=== PATIENT | female | born 1995 | race Caucasian/White ===

== ENCOUNTER 2023-03-25 05:18 | Emergency (ER) | payer BC, OTHER ==
[2023-03-25] MEDS ORDERED: TRANEXAMIC 1,000 MG/100ML-NACL 1,000 MG in SALINE 1 100ML.BAG IVPB ONE (05:47)
[2023-03-25 05:51] VITALS: TEMP 98.2
[2023-03-25 06:01] LABS: Basophils # (A) 0.1 k/uL (0-0.2); Basophils % (A) 1 %; Eosinophils # (A) 0.2 k/uL (0-0.7); Eosinophils % (A) 2 %; HCT 40.5 % (34.0-46.0); HGB 14.2 gm/dL (11.4-16.0); Lymphocytes # (A) 2.3 k/uL (1.0-4.8); Lymphocytes % (A) 27 %; MCH 29.9 pg (25.0-35.0); MCV 85.4 fL (80.0-100.0); Mean Platelet Volume 7.7; Monocytes # (A) 0.7 k/uL (0-1.0); Monocytes % (A) 8 %; Neutrophils # (A) 5.3 k/uL (1.3-7.7); Neutrophils % (A) 61 %; Platelet Count 264 k/uL (150-450); RBC 4.75 m/uL (3.80-5.40); RDW 11.9 % (11.5-15.5); WBC 8.6 k/uL (3.8-10.6)
[2023-03-25 06:18] LABS: African American GFR (CKD) >90 (>60 ml/min/1.73 sqM); Anion Gap 11 mmol/L; Blood Urea Nitrogen 23 mg/dL (7-17); Calcium 9.8 mg/dL (8.4-10.2); Carbon Dioxide 22 mmol/L (22-30); Chloride 107 mmol/L (98-107); Glucose 93 mg/dL (74-99); Non-African American GFR(CKD) >90 (>60 ml/min/1.73 sqM); Sodium 140 mmol/L (137-145)
--- NOTE | 2023-03-25 06:23 | ED ---
Female Urogenital HPI - General Chief complaint: Vaginal Bleeding Stated complaint: Vaginal Bleeding Time Seen by Provider: 03/25/23 06:01 Source: patient, family, RN notes reviewed Mode of arrival: ambulatory Limitations: no limitations - History of Present Illness Initial comments: Patient is a 27-year-old female presented ER with chief complaint of heavy vaginal bleeding. Patient has a past medical history significant of factor V, PCOS, and thyroid problems. Patient had a medication on 02/05/23 through [facility]. Patient has followed up at [facility] last week and was told she was good. Patient states she started heavily bleeding with large clots around 1 AM and she was unable to leave the toilet due to the heavy ble eding. She states she was going through a super tampon every 10 minutes. She endorses 10 out of 10 painful cramps since the bleeding has started. Patient states she started to feel lightheaded which brought her to the ER. Patient denies any current headache, double blurry vision, chest pain/palpitations, or shortness of breath. - Related Data Allergies Allergy/AdvReac Type Severity Reaction Status Date / Time amoxicillin AdvReac Rash/Hives Verified 03/25/23 05:35 Review of Systems ROS Statement: Those systems with pertinent positive or pertinent negative responses have been documented in the HPI. ROS Other: All systems not noted in ROS Statement are negative. Past Medical History Past Medical History: Thyroid Disorder History of Any Multi-Drug Resistant Organisms: None Reported Additional Past Surgical History / Comment(s): dental, PCOS, factor five Past Psychological History: No Psychological Hx Reported Smoking Status: Never smoker Past Alcohol Use History: Rare Past Drug Use History: None Reported General Exam Limitations: no limitations General appearance: alert, in no apparent distress Respiratory exam: Present: normal lung sounds bilaterally. Absent: respiratory distress, wheezes, rales, rhonchi, stridor Cardiovascular Exam: Present: regular rate, normal rhythm, normal heart sounds. Absent: systolic murmur, diastolic murmur, rubs, gallop, clicks GI/Abdominal exam: Present: soft, tenderness (RLQ/LLQ), normal bowel sounds Speculum exam: Present: vaginal bleeding (mild from cervical oz, cervical oz closed ), other (No cervical discharge or blood clots noted. Normal exterior exam. ) Neurological exam: Present: alert, oriented X3, CN II-XII intact Psychiatric exam: Present: normal affect, normal mood Skin exam: Present: warm, dry, intact, normal color. Absent: rash Course Vital Signs 03/25/23 03/25/23 05:28 07:38 Temperature 98.2 F Pulse Rate 81 78 Respiratory 18 16 Rate Blood Pressure 149/90 124/88 O2 Sat by Pulse 99 98 Oximetry Medical Decision Making - Medical Decision Making Was pt. sent in by a medical professional or institution (, SHERRY, THEATRICAL RIGGER, urgent care, hospital, or senior living...) When possible be specific @ -No Did you speak to anyone other than the patient for history (EMS, parent, family, police, friend...)? What history was obtained from this source @ -Family Did you review nursing and triage notes (agree or disagree)? Why? @ -I reviewed and agree with nursing and triage notes Were old charts reviewed (outside hosp., previous admission, EMS record, old EKG, old radiological studies, urgent care reports/EKG's, senior living records)? Report findings @ -No old charts were reviewed Differential Diagnosis (chest pain, altered mental status, abdominal pain women, abdominal pain men, vaginal bleeding, weakness, fever, dyspnea, syncope, headache, dizziness, GI bleed, back pain, seizure, CVA, palpatations, mental health, musculoskeletal)? @ -Differential Vaginal Bleeding: Spontaneous , threatened , molar , ectopic , bloody show, incompetent cervix, abruptio placenta, placenta previa, uterine rupture, dysfunctional uterine bleeding, hemorrhage, uterine fibroids, this is not meant to be an all-inclusive. EKG interpreted by me (3pts min.). @ -None X-rays interpreted by me (1pt min.). @ -None done CT interpreted by me (1pt min.). @ -None done U/S interpreted by me (1pt. min.). @ -Transvaginal ultrasound significant for complicated right ovarian cyst What testing was considered but not performed or refused? (CT, X-rays, U/S, labs)? Why? @ -None What meds were considered but not given or refused? Why? @ -None Did you discuss the management of the patient with other professionals (pro fessionals i.e. , SHERRY, THEATRICAL RIGGER, lab, RT, psych nurse, social welfare clerk, epic willow specialist, teacher, consumer safety officer, home health care case manager)? Give summary @ -No Was smoking cessation discussed for >3mins.? @ -No Was critical care preformed (if so, how long)? @ -No Were there social determinants of health that impacted care today? How? (Homelessness, low income, unemployed, alcoholism, drug addiction, transporta tion, low edu. Level, literacy, decrease access to med. care, [facility], rehab)? @ -No Was there de-escalation of care discussed even if they declined (Discuss DNR or withdrawal of care, Hospice)? DNR status @ -No What co-morbidities impacted this encounter? (DM, HTN, Smoking, COPD, CAD, Cancer, CVA, ARF, Chemo, Hep., AIDS, mental health diagnosis, sleep apnea, morbid obesity)? @ -PCOS, factor V Was patient admitted / discharged? Hospital course, mention meds given and route, prescriptions, significant lab abnormalities, going to OR and other pertinent info. @ -Discharged. Patient is a 27-year-old female presented ER with chief complaint of vaginal bleeding and cramping. Transvaginal ultrasound was significant for complicated right ovarian cyst. Labs were significant for an hCG 4.3 and Hgb 14. Pelvic exam was performed after patient eas given IV TXA and showed mild bleeding from the cervical os. Patient received IV TXA and IV Zofran in the ER. Patient will be discharged home in stable condition with instruction to follow-up with her CENTRIFUGAL DRIER OPERATOR within the next 1-2 days. Patient states she will call her CENTRIFUGAL DRIER OPERATOR today. Patient expressed understanding of care plan. Undiagnosed new problem with uncertain prognosis? @ -No Drug Therapy requiring intensive monitoring for toxicity (Heparin, Nitro, I nsulin, Cardizem)? @ -No Were any procedures done? @ -No Diagnosis/symptom? @ -Uterine bleeding Acute, or Chronic, or Acute on Chronic? @ -Acute Uncomplicated (without systemic symptoms) or Complicated (systemic symptoms)? @ -Uncomplicated Side effects of treatment? @ -No Exacerbation, Progression, or Severe Exacerbation? @ -No Poses a threat to life or bodily function? How? (Chest pain, [place], [place], pneumonia, PE, COPD, DKA, ARF, appy, cholecystitis, CVA, Diverticulitis, Homicidal, Suicidal, threat to staff... and all critical care pts) @ -No - Lab Data Result diagrams: 03/25/23 05:51 03/25/23 05:51 Lab Results 03/25/23 03/25/23 03/25/23 Range/Units 05:51 05:51 05:51 WBC 8.6 (3.8-10.6) k/uL RBC 4.75 (3.80-5.40) m/uL Hgb 14.2 (11.4-16.0) gm/dL Hct 40.5 (34.0-46.0) % MCV 85.4 (80.0-100.0) fL MCH 29.9 (25.0-35.0) pg MCHC 35.0 (31.0-37.0) g/dL RDW 11.9 (11.5-15.5) % Plt Count 264 (150-450) k/uL MPV 7.7 Neutrophils % 61 % Lymphocytes % 27 % Monocytes % 8 % Eosinophils % 2 % Basophils % 1 % Neutrophils # 5.3 (1.3-7.7) k/uL Lymphocytes # 2.3 (1.0-4.8) k/uL Monocytes # 0.7 (0-1.0) k/uL Eosinophils # 0.2 (0-0.7) k/uL Basophils # 0.1 (0-0.2) k/uL PT 11.1 (10.0-12.5) sec INR 1.0 (<1.2) APTT 23.7 (22.0-30.0) sec Sodium 140 (137-145) mmol/L Potassium 4.0 (3.5-5.1) mmol/L Chloride 107 (98-107) mmol/L Carbon Dioxide 22 (22-30) mmol/L Anion Gap 11 mmol/L BUN 23 H (7-17) mg/dL Creatinine 0.73 (0.52-1.04) mg/dL Est GFR (CKD-EPI)AfAm >90 (>60 ml/min/1.73 sqM) Est GFR (CKD-EPI)NonAf >90 (>60 ml/min/1.73 sqM) Glucose 93 (74-99) mg/dL Calcium 9.8 (8.4-10.2) mg/dL HCG, Quant 4.3 mIU/mL Blood Type Blood Type Confirm Blood Type Recheck Bld Type Recheck Status Antibody Screen Spec Expiration Date 03/25/23 03/25/23 Range/Units 06:10 06:19 WBC (3.8-10.6) k/uL RBC (3.80-5.40) m/uL Hgb (11.4-16.0) gm/dL Hct (34.0-46.0) % MCV (80.0-100.0) fL MCH (25.0-35.0) pg MCHC (31.0-37.0) g/dL RDW (11.5-15.5) % Plt Count (150-450) k/uL MPV Neutrophils % % Lymphocytes % % Monocytes % % Eosinophils % % Basophils % % Neutrophils # (1.3-7.7) k/uL Lymphocytes # (1.0-4.8) k/uL Monocytes # (0-1.0) k/uL Eosinophils # (0-0.7) k/uL Basophils # (0-0.2) k/uL PT (10.0-12.5) sec INR (<1.2) APTT (22.0-30.0) sec Sodium (137-145) mmol/L Potassium (3.5-5.1) mmol/L Chloride (98-107) mmol/L Carbon Dioxide (22-30) mmol/L Anion Gap mmol/L BUN (7-17) mg/dL Creatinine (0.52-1.04) mg/dL Est GFR (CKD-EPI)AfAm (>60 ml/min/1.73 sqM) Est GFR (CKD-EPI)NonAf (>60 ml/min/1.73 sqM) Glucose (74-99) mg/dL Calcium (8.4-10.2) mg/dL HCG, Quant mIU/mL Blood Type B Negative Blood Type Confirm B Negative Blood Type Recheck No Previous Record Bld Type Recheck Status CABO Indicated Antibody Screen NEGATIVE Spec Expiration Date 03/28/2023 - 8912 - Radiology Data Radiology results: report reviewed, image reviewed Disposition Clinical Impression: Vaginal bleeding Disposition: HOME SELF-CARE Condition: Stable Instructions (If sedation given, give patient instructions): Abnormal (Dysfunctional) Uterine Bleeding (ED) Additional Instructions: Please return to the Emergency Department if symptoms worsen or any other concerns. Please follow-up with your CENTRIFUGAL DRIER OPERATOR as soon as possible. Is patient prescribed a controlled substance at d/c from ED?: No Referrals: Sheri Ragsdale MD [Primary Care Provider] - 1-2 days
[2023-03-25 06:31] LABS: Partial Thromboplastin Time 23.7 sec (22.0-30.0); Prothrombin Time 11.1 sec (10.0-12.5)
[2023-03-25 06:35] LABS: HCG,Quantitative Serum 4.3 mIU/mL
[2023-03-25] MEDS ORDERED: ONDANSETRON 4 MG/2 ML VIAL IVP STA (06:46)
--- NOTE | 2023-03-25 07:58 | US ---
EXAMINATION TYPE: US transvaginal DATE OF EXAM: 03/25/2023 COMPARISON: NONE CLINICAL INDICATION: Female, 27 years old with history of bleeding; medical AB 6 weeks ago, patient w as 5 weeks at the time, A1, heavy bleeding and clots this am TECHNIQUE: TV. Transvaginal sonographic images Date of LMP: 12/19/2022 EXAM MEASUREMENTS: Uterus: 7.1 x 5.2 x 4.6 cm Endometrial Stripe: 1.1 cm Right Ovary: 4.8 x 5.4 x 4.7 cm Left Ovary: 3.2 x 2.2 x 2.2 cm 1. Uterus: Retroverted wnl 2. Endometrium: 1.1cm with some vascularity noted 3. Right Ovary: multiple complex cyst seen, largest = 4.4 x 4.7 x 3.7cm 4. Left Ovary: 1.6cm complex cyst seen Spectral, color and waveform doppler imaging shows good arterial and venous flow within the ovaries ; there is no evidence for ovarian torsion. 5. Bilateral Adnexa: mild right sided free fluid 6. Posterior cul-de-sac: wnl HCG = 4.3 today IMPRESSION: 1. Complex cyst right ovary. Follow-up recommended
[2023-03-25 09:36] VITALS: BP 114/84; PULSE 74; RESP 18
== END 2023-03-25 09:19 | disposition home or self-care (01) ==
LOC: EC 05:18
DX: O46.91 Antepartum hemorrhage, unspecified, first trimester (principal); N93.9 Abnormal uterine and vaginal bleeding, unspecified; Z88.0 Allergy status to penicillin; Z3A.01 Less than 8 weeks gestation of pregnancy
CPT/HCPCS: 36415; 86900; 86901; 80048; 85025; 85610; 85730; 86850; 84702; 93975; 76830; 99284; 96374; J2405

== ENCOUNTER → 2024-03-17 | Outpatient (CLI) | payer BC ==
[2024-03-17 14:54] VITALS: BP 149/93; PULSE 82; RESP 16; TEMP 98.3
--- NOTE | 2024-03-17 15:42 | P.SLEEP ---
History of Present Illness DATE: 03/17/2024 CONSULTATION/NEW PATIENT EVALUATION HISTORY OF PRESENT ILLNESS/SLEEP-WAKE EVALUATION: 28-year-old lady had been evaluated in the sleep center for possible obstructive sleep apnea hypopnea syndrome. SLEEP SCHEDULE: Usually sleep schedule from 8:30 AM to 123 PM on working days and from 7 AM to 113 PM on days off. Patient works at night order selector, trying to keep your schedule regular 7 days a week. FALLING ASLEEP: Patient has difficulties with falling asleep. DURING SLEEP: Patient wakes up from sleep up to 10 times, sometimes out of during movements during the sleep.positive history of snoring. No history of hypnogogical hallucinations, sleep paralysis, or cataplexy. DURING THE DAY/WAKE STATE: Patient feels sleepiness.. [place] sleepiness scale is significantly increased to 16. Patient may take 1 nap. PAST MEDICAL HISTORY: Hypothyroidism. PAST SURGICAL HISTORY: None. MEDICATIONS: Please see below. SOCIAL HISTORY: Please see below. FAMILY HISTORY: Hypertension, cancer. REVIEW OF SYSTEMS: Multiple awakenings from sleep, sleepiness. No fevers. No double vision. No recent chest pain. No shortness of breath. No abdominal pain. No bleeding episodes. No blood in urine. No seizure episodes. PHYSICAL EXAMINATION: GENERAL: A pleasant patient without any distress. VITAL SIGNS: Please see below, weight 137 pounds, BMI 21.7. HEENT: PERRLA, EOMI. Evaluation of oropharynx showed tongue protrudes midline, low position of soft palate Mallampati 23, big tonsils. NECK: Supple. No JVD. Thyroid is not palpable. 13 inches in circumference. LUNGS: Clear to percussion and to auscultation. Good air exchange. No wheezing or rhonchi. HEART: S1, S2 regular. No murmurs, gallops or rubs. ABDOMEN: Soft and nontender. Bowel sounds are present. No organomegaly appreciated. EXTREMITIES: No clubbing or cyanosis. [employer] [place]: Awake, alert, and oriented x3. Cranial nerves 2 to 7 intact. There is no fasciculation or atrophy noted. No focal deficits observed. ASSESSMENT: 1. Snoring, multiple awakenings from sleep, big tonsils. Possible obstructive sleep apnea hypopnea syndrome. 2. Significant sleepiness with [place] Sleepiness Scale 16, dictate necessity to include hypersomnia and differential diagnosis. 3. 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 4. Hypothyroidism. PLAN: 1. Home sleep apnea test for evaluation of patient's breathing during sleep. 2. Following plan after reading sleep study. 3. Preferable position during sleep on the side. 4. No driving if patient feels any sleepiness. Patient is aware of civil and criminal liability for unsafe driving. 5. Sleep hygiene with regular sleep time for at least 7.5-8 hours. Thank you very much for referring this patient for consultation. Sincerely, Scott Omer MD, PhD, FAASM. Diplomat of [place] [employer], Sleep Medicine Board by [place] [employer] [place] [employer] [facility] cc: Sheri Ragsdale MD Past Medical History Past Medical History: Hypertension, Thyroid Disorder Additional Past Medical History / Comment(s): polycystic Ovarian syndrome, factor five History of Any Multi-Drug Resistant Organisms: None Reported Additional Past Surgical History / Comment(s): dental, PCOS, factor five Past Anesthesia/Blood Transfusion Reactions: No Reported Reaction Past Psychological History: No Psychological Hx Reported Smoking Status: Never smoker Past Alcohol Use History: Rare Past Drug Use History: None Reported - Past Family History Father Family Medical History: Cancer, Hyperlipidemia Additional Family Medical History / Comment(s): skin cancer Mother Family Medical History: Cancer, Hypertension Additional Family Medical History / Comment(s): snoring, skin cancer Medications and Allergies Home Medications Medication Instructions Recorded Confirmed Type Levothyroxine Sodium [Tirosint] 50 mcg PO DAILY 03/17/24 03/17/24 History Nebulizer [Altera Nebulizer See Rx Instructions .ROUTE .COMPLEX 03/17/24 03/17/24 History ([facility] Inhalation device)] Temazepam [Restoril] 15 mg PO HS PRN 03/17/24 03/17/24 History Allergies Allergy/AdvReac Type Severity Reaction Status Date / Time amoxicillin AdvReac Rash/Hives Verified 03/25/23 05:35 Physical Exam Vitals: Vital Signs Temp Pulse Resp BP Pulse Ox 03/17/24 14:52 98.3 F 82 16 149/93 100 Intake and Output 03/17/24 03/17/24 03/17/24 06:59 14:59 22:59 Other: Weight 62.142 kg Sleep Note - Sleep Data ESS Total: 16 - Sleep Note Sleep Note: Temperature: 98.3 F Pulse Rate: 82 Respiratory Rate: 16 Blood Pressure: 149/93 SpO2: 100 Height: 5 ft 6.5 in Weight: 62.142 kg BMI: Neck Circumference: 13
== END ==
LOC: 3 N SLEEP 14:02
PROVIDERS: ATTEND Internal Medicine
CPT/HCPCS: 99211